=== PATIENT | female | born 1980 | race Two or more races ===

== ENCOUNTER 2017-09-22 22:58 | Emergency (ER) | payer SELFPAY ==
[~2017-09-22] VITALS: Ht 160 cm; Wt 58.1 kg
[2017-09-22 23:35] LABS: BASOPHILS % (AUTO) 0.4 % (0.0-2.0); EOSINOPHILS % (AUTO) 1.5 % (0.0-3.0); HEMATOCRIT 37.5 % (37.0-47.0); HEMOGLOBIN 12.1 G/DL (12.0-16.0); LYMPHOCYTES % (AUTO) 16.3 % (20.0-45.0); MEAN CORPUSCULAR VOLUME 96 FL (80-99); MONOCYTES % (AUTO) 5.9 % (1.0-10.0); PLATELET COUNT 333 K/UL (150-450); RED BLOOD COUNT 3.91 M/UL (4.20-5.40); RED CELL DISTRIBUTION WIDTH 11.7 % (11.6-14.8); WHITE BLOOD COUNT 13.3 K/UL (4.8-10.8)
[2017-09-22 23:46] LABS: ANION GAP 7 mmol/L (5-15); BLOOD UREA NITROGEN 8 mg/dL (7-18); CALCIUM 8.8 MG/DL (8.5-10.1); CARBON DIOXIDE 25 MMOL/L (21-32); CHLORIDE 104 MMOL/L (98-107); CREATININE 0.7 MG/DL (0.55-1.30); POTASSIUM 4.2 MMOL/L (3.5-5.1); SODIUM 136 MMOL/L (136-145)
[2017-09-22 23:48] LABS: INR 0.9 (0.9-1.1)
[2017-09-22 23:51] VITALS: BP 104/68
[2017-09-22 23:51] LABS: ALANINE AMINOTRANSFERASE 27 U/L (12-78); ALBUMIN 2.9 G/DL (3.4-5.0); ALBUMIN/GLOBULIN RATIO 0.6 (1.0-2.7); ALKALINE PHOSPHATASE 61 U/L (46-116); ASPARTATE AMINO TRANSFERASE 22 U/L (15-37); BILIRUBIN,TOTAL 0.2 MG/DL (0.2-1.0)
[2017-09-23 00:44] LABS: APPEARANCE,URINE CLEAR; BILIRUBIN, URINE NEGATIVE (NEGATIVE); COLOR,URINE PALE YELLOW; GLUCOSE, URINE (UA) NEGATIVE (NEGATIVE); KETONES,URINE NEGATIVE (NEGATIVE); LEUKOCYTE ESTERASE ,URINE 1+ (NEGATIVE); NITRITE,URINE NEGATIVE (NEGATIVE); PH,URINE 7 (4.5-8.0); PROTEIN,URINE NEGATIVE (NEGATIVE); UROBILINOGEN,URINE NORMAL MG/DL (0.0-1.0)
[2017-09-23 00:51] VITALS: BP 105/66
[2017-09-23] MEDS ORDERED: cefTRIAXone 1 GM in NS 55 ML IVPB ONE (01:15)
--- NOTE | 2017-09-23 01:50 | Emergency Room Report ---
History of Present Illness General Chief Complaint: OB/Uterine Contractions Source: Patient Present Illness HPI The patient presents with right lower quadrant pain. She is allegedly 22 weeks at this time. She just flew from [place] and was approximately 24 hour flight. 3 hours after arriving in [place] on Sunday at 7:30 PM. The pain has been constant and somewhat worsening. There had pain like this before. She denies any fevers. She's had slight amount of nausea which is unusual for her with this . This is her first . She is blood type A+ according to her. She is taking lites and undergoing OB care in [place]. She had injected herself with 40 mg of enoxaparin before the flight. This was on at approximately 10 PM. The pain is rated at 8/10 at this time. It doesn't radiate. She tried taking paracetamol and hasn't helped very much. She took this yesterday evening. She has a history of fibroids and is concerned that this might be her fibroid that's causing this pain. She denies any vaginal bleeding or discharge. There is no dysuria. She denies headache, dyspnea, chest pain, palpitations, extremity pain or edema. Allergies: Coded Allergies: No Known Allergies (Unverified , 09/22/17) Patient History Past Medical History: see triage record Social History: Denies: smoking, alcohol use Social History Narrative from [place] Last Menstrual Period: April 08, 2017 Now: Yes - 22 wks : 1 Para: 0 Reviewed Nursing Documentation: PMH: Agreed; PSxH: Agreed Nursing Documentation-PMH Past Medical History: No Stated History Review of Systems All Other Systems: negative except mentioned in HPI Physical Exam Vital Signs Date Time Temp Pulse Resp B/P (MAP) Pulse Ox O2 Delivery O2 Flow Rate FiO2 09/22/17 23:00 98.1 86 16 112/73 97 Room Air 98.1 Sp02 EP Interpretation: reviewed, normal General Appearance: well appearing, no apparent distress, GCS 15 Head: normocephalic Eyes: bilateral eye normal inspection, bilateral eye PERRL ENT: moist mucus membranes Neck: supple Respiratory: lungs clear, normal breath sounds Cardiovascular #1: regular rate, rhythm Cardiovascular #2: 2+ radial (R) Gastrointestinal: normal inspection, normal bowel sounds, no mass, non- distended, guarding - RLQ, tenderness Genitourinary: no CVA tenderness, deferred - for ultrasound Musculoskeletal: back normal, gait/station normal, normal range of motion Neurologic: alert, oriented x3, grossly normal Psychiatric: mood/affect normal Skin: normal inspection, warm/dry Medical Decision Making Diagnostic Impression: Primary Impression: RLQ abdominal pain Additional Impressions: 23 weeks gestation of Leukocytosis Qualified Codes: D72.829 - Elevated white blood cell count, unspecified ER Course Patient presents with right lower quadrant pain and allegedly 22 weeks . Differential includes a fibroid, ovarian cyst, UTI, renal stone, diverticulitis, appendicitis amongst others. Based on exam suspicion of appendicitis is high. She'll be evaluated with labs and ultrasound. She will receive Tylenol and IV hydration. She refuses stronger analgesia at this time. White count is elevated. Urinalysis is clear. Ultrasound shows 23 week gestation and inability to identify bowels or appendix. Exam is still with guarding. Due to the fact that 23 weeks is a potentially viable the patient will be transferred to [facility] for possible care and for evaluation of a possible appendicitis. After discussion with Dr. Holland who accepted the patient antibiotics are given. Patient transfer [facility]. Laboratory Tests Test 09/22/17 23:20 09/23/17 00:25 White Blood Count 13.3 K/UL (4.8-10.8) H Red Blood Count 3.91 M/UL (4.20-5.40) L Hemoglobin 12.1 G/DL (12.0-16.0) Hematocrit 37.5 % (37.0-47.0) Mean Corpuscular Volume 96 FL (80-99) Mean Corpuscular Hemoglobin 31.0 PG (27.0-31.0) Mean Corpuscular Hemoglobin Concent 32.3 G/DL (32.0-36.0) Red Cell Distribution Width 11.7 % (11.6-14.8) Platelet Count 333 K/UL (150-450) Mean Platelet Volume 6.0 FL (6.5-10.1) L Neutrophils (%) (Auto) 76.0 % (45.0-75.0) H Lymphocytes (%) (Auto) 16.3 % (20.0-45.0) L Monocytes (%) (Auto) 5.9 % (1.0-10.0) Eosinophils (%) (Auto) 1.5 % (0.0-3.0) Basophils (%) (Auto) 0.4 % (0.0-2.0) Prothrombin Time 8.7 SEC (9.30-11.50) L Prothrombin Time INR 0.9 (0.9-1.1) PTT 27 SEC (23-33) Sodium Level 136 MMOL/L (136-145) Potassium Level 4.2 MMOL/L (3.5-5.1) Chloride Level 104 MMOL/L (98-107) Carbon Dioxide Level 25 MMOL/L (21-32) Anion Gap 7 mmol/L (5-15) Blood Urea Nitrogen 8 mg/dL (7-18) Creatinine 0.7 MG/DL (0.55-1.30) Estimate Glomerular Filtration Rate > 60 mL/min (>60) Glucose Level 104 MG/DL (74-106) Calcium Level 8.8 MG/DL (8.5-10.1) Total Bilirubin 0.2 MG/DL (0.2-1.0) Aspartate Amino Transferase (AST) 22 U/L (15-37) Alanine Aminotransferase (ALT) 27 U/L (12-78) Alkaline Phosphatase 61 U/L (46-116) Total Protein 7.7 G/DL (6.4-8.2) Albumin 2.9 G/DL (3.4-5.0) L Globulin 4.8 g/dL Albumin/Globulin Ratio 0.6 (1.0-2.7) L Lipase 187 U/L (73-393) Urine Color Pale yellow Urine Appearance Clear Urine pH 7 (4.5-8.0) Urine Specific [place] 1.005 (1.005-1.035) Urine Protein Negative (NEGATIVE) Urine Glucose (UA) Negative (NEGATIVE) Urine Ketones Negative (NEGATIVE) Urine Occult Blood Negative (NEGATIVE) Urine Nitrite Negative (NEGATIVE) Urine Bilirubin Negative (NEGATIVE) Urine Urobilinogen Normal MG/DL (0.0-1.0) Urine Leukocyte Esterase 1+ (NEGATIVE) H Urine RBC 0-2 /HPF (0 - 2) Urine WBC 2-4 /HPF (0 - 2) Urine Squamous Epithelial Cells Occasional /LPF Urine Bacteria Few /HPF (NONE) CT/MRI/US Diagnostic Results CT/MRI/US Diagnostic Results : Imaging Test Ordered: u/s Impression 23 weeks gestation, fibroid Last Vital Signs Date Time Temp Pulse Resp B/P (MAP) Pulse Ox O2 Delivery O2 Flow Rate FiO2 09/23/17 02:20 98.2 80 11 105/66 98 Room Air 98.2 Status: improved Disposition: XFER SHT-TRM HOSP Condition: Serious Referrals: NOT CHOSEN IPA/,REFERRING (PCP) Juan Francisco Borges M.D. Sep 23, 2017 01:50
[2017-09-23 01:51] VITALS: BP 108/66
[2017-09-23 02:20] VITALS: BP 105/66
== END 2017-09-23 02:20 | disposition short-term general hospital (02) ==
LOC: EDBD 22:58 → EMR 23:43
DX: O34.12 Maternal care for benign tumor of corpus uteri, second trimester (principal); O26.892 Other specified pregnancy related conditions, second trimester; R10.31 Right lower quadrant pain; D72.829 Elevated white blood cell count, unspecified; Z3A.23 23 weeks gestation of pregnancy
CPT/HCPCS: 36415; 76805; 80053; 81003; 83690; 85025; 85610; 85730; 86850; 86900; 86901; 96360; 96361; 96365; 99284; J0696